=== PATIENT | female | born 1995 | race Caucasian/White ===

== ENCOUNTER 2020-04-23 13:20 | Outpatient (CLI) | payer OTHER, SELFPAY ==
[2020-04-23 13:43] VITALS: TEMP 37.3
[2020-04-23 13:45] VITALS: BP 120/65; PULSE 99
[2020-04-23 13:51] VITALS: BMI 23.0
[2020-04-23 14:33] LABS: ROM Internal Control Test YES-OK TO RESULT pt. (Internal QC); ROM Patient Test Negative (Negative)
--- NOTE | 2020-04-23 14:41 | OB.TRI.NOTE ---
- Problem List (1) 36 weeks gestation of Status: Acute (2) Vaginal discharge during Status: Acute (3) History of delivery Status: Acute History of Present Illness Date of Service: 04/23/20 Was patient seen by the physician?: Yes Reason For Visit: ALISA VIDES Final MYRNA: 05/15/20 Gestational age: 36 Weeks and 6 Days History of Present Illness: Pt presents with a small amount of leaking of fluid around midnight last night and none since. She is not feeling any ctx's. No vb. +FM. Allergies No Known Allergies Allergy (Verified 04/23/20 13:52) Laboratory Studies: Laboratory Tests 04/23/20 Range/Units 14:02 Vag Amniotic Fld Detect Negative (Negative) Review of Systems Gastrointestinal: Denies: Abdominal Pain Gynecological: Denies: Vaginal bleeding Physical Exam Vitals: Vital Signs Temp Pulse BP 99.2 F H 99 120/65 04/23/20 13:43 04/23/20 13:45 04/23/20 13:45 General: Alert, No apparent distress, - - Comfortable Abdomen: Soft, Gravid Extremities:: No edema Neurological: Neuro grossly intact NST - FHR Rate Baby A Baseline: 145 Variability:: Moderate Accelerations:: 15 x 15 Decelerations:: None NST Reactive:: Yes FHR Category:: Category I Uterine Activity:: Ctx's q 4-5 min that pt is not feeling Impression/Plan ROM plus negative Cvx c/t/h Pt has follow up in 2 days in office Discussed PTL precautions and when to call or return NST reactive
== END 2020-04-23 14:50 | disposition home or self-care (01) ==
LOC: WPOUT 13:42 → WP 13:42
PROVIDERS: Visit Provider Obstetrics & Gynecology
DX: O26.893 Other specified pregnancy related conditions, third trimester (principal); N89.8 Other specified noninflammatory disorders of vagina; Z3A.36 36 weeks gestation of pregnancy
CPT/HCPCS: 59025; 59050; 84112; 99218; G0378

== ENCOUNTER 2020-05-16 09:30 | Inpatient (IN) | payer SELFPAY ==
--- NOTE | 2020-05-15 16:53 | HP.PCM_ITS ---
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 Signed Encounter Date: 05/09/2020 Expand [employer] [facility] All Hide copied text Emily for details Pre-Op History and Physical ? HPI: The patient is a 24 year old female presenting for pre-operative visit. She is scheduled for , for Repeat elective cs on 05/16/20. Procedure discussed along with risks, benefits and complications. Other alternatives discussed for management. Consent form signed? Yes. ? ? PAST MEDICAL HISTORYExpand by Default PAST MEDICAL HISTORY Diagnosis Date ? NEGATIVE MEDICAL HISTORY ? ? ? PAST SURGICAL HISTORYExpand by Default PAST SURGICAL HISTORY Procedure Laterality Date ? DELIVERY ONLY ? 08/27/2018 ? , low transverse ? ? ? CURRENT MEDICATIONSExpand by Default Current Outpatient Medications Medication Sig Dispense Refill ? blood sugar diagnostic test strip 1 Strip four times daily. Use as instructed 120 Strip 9 ? Lancets lancets 1 Each four times daily. Use as instructed 120 Each 9 ? Urine Glucose-Ketones Test (KETO-DIASTIX) strp 1 Strip four times daily. 120 Strip 9 ? PNV no.95/ferrous fum/folic ac ( ORAL) Take by mouth. ? ? ? No current facility-administered medications for this visit. ? ? ALLERGIES: Patient has no known allergies. ? PERSONAL HISTORY: SOCIAL HISTORYExpand by Default Social History ? Tobacco Use ? Smoking status: Never Smoker ? Smokeless tobacco: Never Used Substance Use Topics ? Alcohol use: Never ? Drug use: Never ? FAMILY HISTORY: FAMILY HISTORYExpand by Default FAMILY HISTORY Problem Relation Age of Onset ? No Known Problems Mother ? ? No Known Problems Father ? ? No Known Problems Sister ? ? No Known Problems Brother ? ? Ulcerative Colitis Sister ? ? No Known Problems Sister ? ? No Known Problems Sister ? ? No Known Problems Brother ? ? No Known Problems Brother ? ? ? REVIEW OF SYMPTOMS: negative except as noted above PHYSICAL EXAMINATION: ? VITALS: Blood pressure 106/60, weight 137 lb (62.1 kg), last menstrual period 08/09/2019. ? GENERAL: The patient is well nourished, well hydrated in no acute distress. , The patient is oriented to time, place, and person. NECK: full range of motion GENITALIA: Normal external genitalia- VE- CLOSED WET PREP: Not indicated ? IMPRESSION: @ 39.1 weeks- GDMA1, previous cs ? PLAN: Repeat elective cs at 40.1 weeks scheduled if no active labor prior to this ? Pt has been counseled on risks/benefits and alternatives of surgery including but not limited to anesthesia, bleeding, infection, injury to pelvic structures including bowel, bladder, ureters and vessels. Pt wishes to proceed with surgery at this time. ? ? I have reviewed and updated past medical and surgical history, medications and allergies Lamar Mcgovern MD Routine Office Visit on 05/09/2020
[2020-05-16] VITALS (18 sets, daily range): BP systolic 97–127; BP diastolic 56–71; PULSE 63–92; RESP 15–116; TEMP 36.2–37.2; O2SAT 98–100; BMI 23.6
[2020-05-16 10:40] LABS: Bedside Glucose 74 mg/dL (70-110)
[2020-05-16] MEDS: Lactated Ringers 1,000 ML 999 ML IV (10:40)
[2020-05-16] MEDS: Acetaminophen 500 MG Tablet 1000 MG PO ×3 (10:52→23:13)
[2020-05-16 10:55] LABS: Absolute Lymphocyte Count 1.87 X10^3/uL (0.83-4.51); Absolute Neutrophil Count 6.8 X10^3/uL (2.0-7.7); Basophil# 0.03 X10^3/uL; Basophil% 0.3 % (0-1); Eosinophil# 0.06 X10^3/uL; Eosinophils% 0.6 % (0-5); Hematocrit 34.6 % (37-47); Hemoglobin 12.3 g/dL (12.0-15.0); Lymphocyte # 1.87 X10^3/ul (4.0); Lymphocyte % 19.7 % (19-41); Mean Corp Hgb Conc 35.5 g/dL (32-36); Mean Corpuscular Hgb 32.5 pg (27.0-32.0); Mean Corpuscular Volume 91.3 fL (81-99); Monocyte# 0.64 X10^3/uL; Monocyte% 6.7 % (0-10); NRBC Flagged by Analyzer 0 % (0-5); Neutrophil # 6.84 X10^3/uL (2.7-7.7); Neutrophil % 72.2 % (47-70); Platelet Count 132 K/mm3 (150-450); RBC Distribution Width CV 12.2 % (11.6-14.6); RBC Distribution Width SD 40.6 fl (35.1-43.9); Red Blood Count 3.79 M/mm3 (4.2-5.4); White Blood Count 9.5 K/mm3 (4.4-11.0)
[2020-05-16] MEDS: Lactated Ringers 1,000 ML 150 ML IV (11:38)
[2020-05-16] MEDS: Sodium Citrate/Citric Acid 30 ML UDC PO (11:59)
--- NOTE | 2020-05-16 12:04 | PCM.OPRPT ---
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 She was then placed in the supine position. She was prepped and draped in the normal sterile fashion. Anesthesia was found to be adequate. At this time a Pfannenstiel skin incision was made with a knife was carried down to the underlying layer of the fascia. The fascial incision was then extended laterally using curved Parham scissor. Attention was then turned to the superior aspect of the fascial edge was grasped with 2 straight [place] clamps tented up and the rectus muscle dissected off sharply using curved Parham scissor. Attention was then turned to the inferior aspect where again Leanne clamps were placed in the rectus muscles were tented up and the fascia was dissected off sharply using the curved Parham scissor. Rectus muscles were then in the midline bluntly and peritoneum was entered bluntly. Gentle opposing traction was placed. At this time the vesicouterine peritoneum was identified. Lower uterine segment, very thin. Scalpel was used to make a uterine incision in a low transverse fashion. The uterus was then entered bluntly gentle opposing traction was placed to extend this incision. Membranes were ruptured clear. 's head was brought to the uterine incision was delivered atraumatically. Cord was clamped and cut infant was handed to the waiting nursery team. The Placenta was removed from the uterus. The uterus was then removed from the abdominal cavity. The uterus was cleared of all clots and debris using a lap. At this time the uterine incision was reapproximated using #1 Vicryl in a running locked fashion. Hemostasis was appreciated. Posterior cul-de-sac was then cleared of all clots and debris. Uterus was placed back in the abdominal cavity. Gutters were cleared of all clots and debris. Uterine incision was reevaluated and noted to be of excellent hemostasis. Ruben placed. At this time the peritoneum was grasped with Kellys reapproximated using #2 Vicryl suture in a running fashion. Muscles then reapproximated using #2 Vicryl in a interrupted mattress suture fashion ruben placed over rectus. Fascia was then reapproximated using #1 Vicryl in a running fashion. Ruben placed in subQ layer. good hemostasis. Subcu layer was closed using 4-0 Monocryl in a subcu fashion. Dry sterile dressing was applied. Instrument lap needle count correct ?2. Anticipated normal postoperative course. I discussed with patient and that i do NOT recommend TOLAC for future pregnancies based on how thin uterus was. Amniotic Membrane Rupture Type: Artificial Amniotic Fluid Description: Clear Placenta Disposition: [facility] Drain: Simon to straight drain Cord Entanglement: None Cord Vessel Description: 3 Vessels Esitmated Blood Loss (ml): 700 Gender: Male (1 minute): 8 - time 1231 (5 minute): 9 Delayed cord clamping: Yes Antibiotic Given: Ancef 2 grams IV x1 Pt instructed on risks of surgery: Bleeding, Anesthesia Risks, Infection, Injury to surrounding structure(s) including bowel and bladder Complications: None - Admit VTE Documentation VTE Present on Admission: Yes VTE Mechan Device Prophylaxis: SCD's VTE Pharm Prophylaxis ordered?: No
[2020-05-16] MEDS: Cefazolin 2 GM in 0.9% Normal Saline 100 ML IV (12:07)
[2020-05-16] MEDS: Oxytocin 30 units/NS 500 ml 30 UNITS/500 ML IV.SOLN 167 UNITS IV (13:14)
[2020-05-16 14:11] LABS: Bedside Glucose 73 mg/dL (70-110)
[2020-05-16 16:26] LABS: Chlamydia Trachomatis by PCR Negative (Negative); Neisserai gonorrhoeae by PCR Negative (Negative); Probe Check PASS; Sample Adequacy Control PASS; Specimen Processing Control PASS
[2020-05-16] MEDS: Lactated Ringers 1,000 ML 100 ML IV (16:29)
[2020-05-16] MEDS: Ketorolac 30 MG/ML Syringe IV (18:03)
[2020-05-16] MEDS: Ondansetron 4 MG/2 ML Vial IV (19:15)
[2020-05-17 01:20] VITALS: BP 100/52; PULSE 69; RESP 16; TEMP 36.8; O2SAT 98
[2020-05-17] MEDS: Ketorolac 30 MG/ML Syringe IV ×3 (01:22→13:50)
[2020-05-17] MEDS: 0.9% Saline Lock 10 ML Syringe IV ×3 (01:22→13:48)
[2020-05-17 05:07] VITALS: BP 98/53; PULSE 60; RESP 16; TEMP 36.9
[2020-05-17] MEDS: Acetaminophen 500 MG Tablet 1000 MG PO ×2 (05:10→12:14)
[2020-05-17 05:26] LABS: Hematocrit 30.6 % (37-47); Hemoglobin 10.7 g/dL (12.0-15.0); Mean Corpuscular Hgb 32.7 pg (27.0-32.0); Mean Corpuscular Volume 93.6 fL (81-99); Mean Platelet Vol. 9.9 fl (6.2-12.0); Platelet Count 112 K/mm3 (150-450); RBC Distribution Width CV 12.2 % (11.6-14.6); Red Blood Count 3.27 M/mm3 (4.2-5.4); White Blood Count 9.2 K/mm3 (4.4-11.0)
[2020-05-17 06:11] LABS: Bedside Glucose 71 mg/dL (70-110)
--- NOTE | 2020-05-17 08:15 | PN.OBGYN_ITS ---
Subjective: She is doing well. Pain well controlled. Ambulating and voiding without difficulty. Tolerating regular diet without nausea or vomiting. Lochia normal. She denies lightheadedness, dizziness, chest pain, shortness of breath, leg pain. She desires to go home today. - Physical Exam Vitals/I&O's: Vital Signs Temp Pulse Resp BP Pulse Ox 98.5 F 60 16 98/53 L 98 05/17/20 05:07 05/17/20 05:07 05/17/20 05:07 05/17/20 05:07 05/17/20 01:20 Oxygen Delivery Method Room Air Weight: 137 lb 5.568 oz Body Mass Index (BMI) 23.6 Intake and Output for Last 24 Hours 05/15/20 05/16/20 05/17/20 23:59 23:59 23:59 Intake Total 2897.37 / 2897.37 Output Total 1850 / 1850 925 / 925 Balance 1047.37 / 1047.37 -925 / -925 General: Alert, No apparent distress Abdomen: Soft, Non Tender, - - Dressing c/d/i Extremities: No edema, No Calf Tenderness Skin: No rashes Neurological: Neuro grossly intact Psych/Mental Status: Normal Affect, Appropriate Laboratory Results 05/16/20 10:32: POC Glucose 74 05/16/20 10:40: WBC 9.5, RBC 3.79 L, Hgb 12.3, Hct 34.6 L, MCV 91.3, MCH 32.5 H, MCHC 35.5, RDW Std Deviation 40.6, RDW Coeff of Cruz 12.2, Plt Count 132 L, MPV 10.0, Immature Gran % (Auto) 0.500, Neut % (Auto) 72.2 H, Lymph % (Auto) 19.7, [place] % (Auto) 6.7, Eos % (Auto) 0.6, Baso % (Auto) 0.3, Absolute Neuts (auto) 6.8, Absolute Lymphs (auto) 1.87, Nucleated RBC % 0 05/16/20 10:40: Blood Type A POSITIVE, Antibody Screen NEGATIVE 05/16/20 10:45: Chlam trachomat DNA PCR Negative, N.gonorrhoeae DNA (PCR) Negative 05/16/20 13:53: POC Glucose 73 05/17/20 05:15: WBC 9.2, RBC 3.27 L, Hgb 10.7 L, Hct 30.6 L, MCV 93.6, MCH 32.7 H, MCHC 35.0, RDW Std Deviation 42.0, RDW Coeff of Cruz 12.2, Plt Count 112 L, MPV 9.9 05/17/20 06:06: POC Glucose 71 Current Medications Acetaminophen (Acetaminophen 500 Mg Tablet) 1,000 mg PO Q6H [facility] Last Admin: 05/17/20 05:10 Dose: 1,000 mg Documented by: Bisacodyl (Bisacodyl 10 Mg Suppository) 10 mg RECTAL UD PRN PRN Reason: If no BM Dextrose (Dextrose 50%-Water 25 Gm/50 Ml Disp.Syrin) 0 gm IV X1 PRN; Protocol PRN Reason: Hypoglycemia Diphenhydramine HCl (Diphenhydramine 25 Mg Capsule) 25 mg PO Q6H PRN PRN PRN Reason: ITCHING Stop: 05/17/20 13:17 Glucagon (Glucagon 1 Mg/Ml Syringe) 1 mg IM .X1 PRN PRN Reason: Hypoglycemia Hydrocortisone (Hydrocortisone 2.5% Crm) 1 applic TOPICAL TID PRN PRN; Protocol PRN Reason: Discomfort Lactated Ringer's () 1,000 mls @ 100 mls/hr IV .Q10H [facility] Last Admin: 05/16/20 23:14 Dose: Not Given Documented by: Ibuprofen (Ibuprofen 600 Mg Tablet) 600 mg PO Q6H [facility] Ketorolac Tromethamine (Ketorolac 30 Mg/Ml Syringe) 30 mg IV Q6H [facility] Stop: 05/17/20 13:01 Last Admin: 05/17/20 06:38 Dose: 30 mg Documented by: Methylergonovine Maleate (Methylergonovine 0.2 Mg/Ml Ampul) 0.2 mg IM X1 PRN PRN Reason: Uterine Atony Nalbuphine HCl (Nalbuphine 10 Mg/Ml Ampul) 5 mg IV Q3H PRN PRN PRN Reason: ITCHING Stop: 05/17/20 13:17 Naloxone HCl (Naloxone 0.4 Mg/Ml Syringe) 0.02 mg IV Q1M PRN PRN Reason: RR <10 and pt unresponsive Ondansetron HCl (Ondansetron 4 Mg/2 Ml Vial) 4 mg IV Q4H PRN PRN PRN Reason: Nausea Last Admin: 05/16/20 19:15 Dose: 4 mg Documented by: Oxycodone HCl (Oxycodone 5 Mg Tablet) 5 - 10 mg PO Q4H PRN PRN PRN Reason: Pain Score 4-10 Prochlorperazine Edisylate (Prochlorperazine 10 Mg/2 Ml Vial) 10 mg IV Q6H PRN PRN PRN Reason: NAUSEA Senna/Docusate Sodium (Senna/Docusate Sodium 1 Tablet) 0 tablet PO DAILY CHERYL Simethicone (Simethicone 80 Mg Tablet) 80 mg PO PCHS PRN PRN Reason: Indigestion/stomach pain Sodium Chloride (0.9% Saline Lock 10 Ml Syringe) 5 - 15 ml IV UD PRN PRN Reason: SALINE FLUSH Last Admin: 05/17/20 06:38 Dose: 10 ml Documented by: Medical Necessity - Tobacco Use Smoking Status: Former smoker Assessment/Plan All Active Problems 36 weeks gestation of (Acute) Vaginal discharge during (Acute) History of delivery (Acute) POD#1 s/p section. Doing well. Pain well controlled. Will repeat a C BC to make sure platelets are trending up or staying stable prior to discharge. The patient desires to go home. She is meeting all milestones for discharge. Discharge instructions reviewed. To return to the office for 1 week incision check.
--- NOTE | 2020-05-17 08:19 | DCINST_ITS ---
Discharge Diet: No Restrictions Discharge Activity: May Shower May resume sexual activity in: 6 weeks Ice area for (Minutes): 15 Weight Bearing Status: Weight bearing as tolerated Lifting Restrictions: Nothing heavier than baby Call your doctor if your incision/area has: Sudden Increased Bleeding, Increased Pain/ Swelling, Increased Redness, Foul Smelling Discharge, Swelling at the incision site Call your doctor if you observe: Fever of 101 or Higher, Inability to urinate, Inability to have a bowel movement, Using more than one pad per hour, Shortness of breath, Dizziness, Fainting spells, Swelling in the ankles, Chest pain, Increased palpitations (irregular heartbeat), Calf discomfort, Uncontrolled pain Suture Line Care: Avoid Pulling/Pushing, Avoid Pinching/Bending Remove Dressing in (days):: 2 - Ok to remove in the shower Cleanse incision/area with: Soap & Water Additional Instructions: If you experience any of the following, contact your healthcare provider. * Bleeding that soaks a pad every hour for 2 hours * Fever 100.4 or higher * Unrelieved incision or abdominal pain * Swelling, redness, discharge or bleeding from your incision or episiotomy site * Your incision begins to separate * Problems urinating (including inability to urinate or burning while urinating). * Visual changes * Severe headache * Flu-like symptoms * Pain or redness in one of both of your breasts * Pain, warmth, tenderness or swelling in your legs, especially the calf area * Frequent nausea and vomiting * Symptoms of depression or anxiety If you experience any of the following, call 911 or go to the nearest Emergency Room. * Chest pain * Problems breathing * Seizure activity * Partial or complete paralysis of a body part, slurred speech, weakness or drooping of the face, or a sudden inability to walk or hold your balance Allergies/Adverse Reactions: Allergies No Known Allergies Allergy (Verified 04/23/20 13:52) Medications to take at Discharge Vits [Prenatabs FA] 1 tab PO DAILY 04/23/20 Docusate Sodium [Colace] 100 mg PO BID PRN PRN #30 cap 05/17/20 Ibuprofen [Motrin] 600 mg PO Q6H PRN PRN #30 tab 05/17/20 The following prescriptions were given: Docusate Sodium [Colace] 100 mg PO BID PRN PRN #30 cap PRN Reason: Constipation Transmission Status: Pending to [facility] Ibuprofen [Motrin] 600 mg PO Q6H PRN PRN #30 tab PRN Reason: Pain Score 6-10 Transmission Status: Pending to [facility] Follow-Up: Call to make an appointment with your doctor for an incision check in 1-2 weeks. You will also need a 6 week post- follow up appointment. Test results from this visit will be discussed in further detail at your follow- up appointment, if applicable. When: 1 week for incision check and 6 weeks for exam Primary Care Physician: Care Physician,No Primary [Primary Care Provider] -
[2020-05-17 09:09] VITALS: BP 118/65; PULSE 84; RESP 16; TEMP 36.9; O2SAT 98
[2020-05-17] MEDS: Senna/Docusate Sodium 1 Tablet PO (11:24)
[2020-05-17 11:43] LABS: Hematocrit 31.8 % (37-47); Hemoglobin 11.2 g/dL (12.0-15.0); Mean Corp Hgb Conc 35.2 g/dL (32-36); Mean Corpuscular Hgb 32.6 pg (27.0-32.0); Mean Corpuscular Volume 92.4 fL (81-99); Mean Platelet Vol. 9.7 fl (6.2-12.0); Platelet Count 119 K/mm3 (150-450); RBC Distribution Width CV 12.3 % (11.6-14.6); RBC Distribution Width SD 41.2 fl (35.1-43.9); Red Blood Count 3.44 M/mm3 (4.2-5.4); White Blood Count 9.1 K/mm3 (4.4-11.0)
[2020-05-17 12:25] VITALS: BP 109/65; PULSE 79; RESP 18; TEMP 36.9; O2SAT 98
== END 2020-05-17 15:30 | disposition home or self-care (01) | DRG 788 ==
PROVIDERS: Obstetrics & Gynecology; Admitting Provider Obstetrics & Gynecology; Visit Provider Obstetrics & Gynecology
PROC: 10D00Z1 Extraction of Products of Conception, Low, Open Approach (ICD-10-PCS; CPT 59514; principal; 2020-05-16 11:45)
DX: O34.211 Maternal care for low transverse scar from previous cesarean delivery (principal); N85.8 Other specified noninflammatory disorders of uterus; Z3A.40 40 weeks gestation of pregnancy; Z37.0 Single live birth; O24.420 Gestational diabetes mellitus in childbirth, diet controlled
CPT/HCPCS: 82962; 85025; 85027; 86850; 86900; 86901; 87491; 87591; 99218; J7120; A4216; G0378; J2405